=== PATIENT | female | born 2005 | race Caucasian/White ===

== ENCOUNTER 2024-08-23 21:50 | Emergency (ER) | payer OTHER ==
[~2024-08-23] VITALS: Ht 154.9 cm; Wt 41.4 kg
[2024-08-23 22:25] VITALS: BP 124/86; PULSE 73; RESP 16; TEMP 97.7; O2SAT 98
[2024-08-23] MEDS ORDERED: ACET500T58 PO (22:34)
--- NOTE | 2024-08-23 22:36 | ED.PDOC ---
Musculoskeletal HPI Comments 19-year-old female presents to ER with complaints of left 5th toe pain x1 day. Patient reports she has been experiencing pain/swelling/bruising to left 5th toe s/p accidentally dropping a "metal cup" on her left foot at 9:30 p.m. prior to arrival to ER. She rates her current pain a 4/10 to left 5th toe without radiation. Notes that she did take Tylenol for her pain with some relief. Denies numbness/tingling or any further symptoms/complaints Chief Complaint: Lower Extremity Time Seen by MD: 21:57 Primary Care Provider: NANI Reviewed Notes: Nurses Notes, Medications, Allergies Allergies: Coded Allergies: NO KNOWN ALLERGIES (Unverified , 08/23/24) Home Meds Active Scripts Acetaminophen (Acetaminophen) 500 Mg Tab, 500 MG PO Q4HPRN, #30 TAB 0 Refills Prov:KALEY RICHARDSON 08/23/24 Information Source: Patient Mode of Arrival: Wheelchair Past Medical History PAST MEDICAL HISTORY: Denies Surgical History: Denies all surgeries Family History Family History: Unknown Social History Smoker: Non-Smoker Alcohol: Denies ETOH Use Drugs: Denies Drug Use Lives In: Home Constitutional: denies: chills, diaphoresis, fatigue, fever, malaise, sweats, weakness, others EENTM: denies: blurred vision, double vision, ear bleeding, ear discharge, ear drainage, ear pain, ear ringing, eye pain, eye redness, hearing loss, mouth pain, mouth swelling, nasal discharge, nose bleeding, nose congestion, nose pain, photophobia, tearing, throat pain, throat swelling, voice changes, others Respiratory: denies: cough, hemoptysis, orthopnea, SOB at rest, shortness of breath, SOB with excertion, stridor, wheezing, others Cardiovascular: denies: chest pain, dizzy spells, diaphoresis, Dyspnea on exertion, edema, irregular heart beat, left arm pain, lightheadedness, palpitations, PND, syncope, others Gastrointestinal: denies: abdomen distended, abdominal pain, blood streaked bowels, constipated, diarrhea, dysphagia, difficulty swallowing, hematemesis, melena, nausea, poor appetite, poor fluid intake, rectal bleeding, rectal pain, vomiting, others Genitourinary: denies: abnormal vagina bleeding, burning, dyspareunia, dysuria, flank pain, frequency, hematuria, incontinence, pain, , vagina discharge, urgency, others Neurological: denies: dizziness, fainting, headache, left sided numbness, left sided weakness, numbness, paresthesia, pre-existing deficit, right sided numbness, right sided weakness, seizure, speech problems, tingling, tremors, weakness, others Musculoskeletal: reports: others (As stated in HPI) Integumetry: reports: others (As stated in HPI) Allergic/Immunocompromised: denies: Difficulty Healing, Frequent Infections, Hives, Itching, others Hematologic/Lymphatic: denies: anemia, blood clots, easy bleeding, easy bruising, swollen glands, others Endocrine: denies: excessive hunger, excessive sweating, excessive thirst, excessive urination, flushing, intolerance to cold, intolerance to heat, unexplained weight gain, unexplained weight loss, others Psychiatric: denies: anxiety, bipolar disorder, depression, hopeless, panic disorder, schizophrenia, sleepless, suicidal, others Physical Exam General Appearance: No Apparent Distress HEENT: PERRL/EOMI Neck: Full Range of Motion, Non-Tender, Normal Respiratory: Chest Non-Tender, Lungs Clear, No Accessory Muscle Use, No Respiratory Distress, Normal Breath Sounds Cardiovascular: No Murmur, No Gallop, Regular Rate/Rhythm Breast Exam: Deferred Gastrointestinal: NOT DONE Genitalia: Deferred Pelvic: Deferred Rectal: Deferred Extremities: Normal capillary refill, Normal range of motion Musculoskeletal : Extremity Location: Little Toe (TTP/mild swelling/ecchymosis noted to left 5th toe. No nailbed injury/further skin changes noted. Patient able to move all toes of left foot. Pulses intact. Gait slow due to pain localized to left 5th toe) Neurologic: Alert, No Motor Deficits, Normal Affect, Normal Mood, No Sensory Deficits Cerebellar Function: Normal Reflexes: Normal Skin: Dry, Warm Peripheral Pulses: 2+ dorsalis pedis (R), 2+ dorsalis pedis (L) Lymphatic: No Adenopathy Was a procedure done? Was a procedure done?: No Sedation Sedation?: No Differential Diagnosis EXT Differential Diagnosis: Dislocation, Laceration, Neurovascular injury X-Ray, Labs, Meds, VS Vital Signs Date Time Temp Pulse Resp B/P (MAP) Pulse Ox O2 Delivery O2 Flow Rate FiO2 08/23/24 22:25 97.7 73 16 124/86 (99) 98 97.7 08/23/24 22:25 Room Air* 0 21 08/23/24 21:59 97.7 73 16 124/86 (99) 98 97.7 PATIENT: GALE ROJO MACCT: [id number]: [id number] : 2005 LOC: ER ROOM / BED: / AGE / SEX: 19 / F ADM STATUS: REG ER SERVICE 26 ORDERING PHYSICIAN: KALEY RICHARDSON PROCEDURE(s): LTOE5 - L 5TH TOE XRAY REASON: left 5th toe pain ORDER NUMBER(s): [id number], ACCESSION NUMBER(s): [id number] CLINICAL INDICATION: left 5th toe pain TECHNIQUE: Left 5th toe 3 radiographic views of the foot were obtained. Comparison: None FINDINGS/IMPRESSION: Minimally displaced corner fracture distal phalanx left 5th toe at the distal interphalangeal joint. The visualized joint space is well maintained. The alignment is anatomical. There is no radiopaque foreign body. ATED BY: PERCY BAINS Jr., DO DICTATED DATE/TIME: 08/23/242302 SIGNED BY: PERCY BAINS Jr., SIGNED DATE/TIME: 08/23/242302 CC: Left 5th toe x-ray reviewed Gabriel tape and hard sole shoe applied Patient neurovascularly intact and reported improvement in symptoms prior to discharge Advised on rest/no strenuous activity, elevation and alternate ice on/off as needed for pain/swelling Advised to f/u with PCP and orthopedics/podiatry in 1-2 days Patient verbalized understanding and agreeable with current plan of care Advised to return to ER immediately if symptoms worsen Images Reviewed?: Images reviewed and evaluated by me Time of 1ST Reevaluation: 22:34 Reevaluation 1ST: N/A Patient Education/Counseling: Diagnosis, Treatment, Prognosis, Need For Follow Up Family Education/Counseling: No Family Present Departure 1 Departure Time of Disposition: 23:10 Impression: Primary Impression: Toe fracture, left Qualified Codes: S92.502A - Displaced unspecified fracture of left lesser toe(s), initial encounter for closed fracture Disposition: 01 HOME / SELF CARE / HOMELESS Condition: Stable e-Prescriptions Acetaminophen (Acetaminophen) 500 Mg Tab 500 MG PO Q4HPRN, #30 TAB 0 Refills Prov: KALEY RICHARDSON 08/23/24 Discharged With: Friend Critical Care Note Critical Care Time?: No Stability Stability form required: No Heart Score Heart Score: Heart Score Response (Comments) Value History N/A 0 EKG N/A 0 Age N/A 0 Risk Factors N/A 0 Troponin N/A 0 Total 0 KALEY RICHARDSON August 23, 2024 22:35
--- NOTE | 2024-08-23 23:06 | DVH ---
CLINICAL INDICATION: left 5th toe pain TECHNIQUE: Left 5th toe 3 radiographic views of the foot were obtained. Comparison: None FINDINGS/IMPRESSION: Minimally displaced corner fracture distal phalanx left 5th toe at the distal interphalangeal joint. The visualized joint space is well maintained. The alignment is anatomical. There is no radiopaque foreign body.
== END 2024-08-23 23:18 | disposition home or self-care (01) ==
LOC: ER 21:54
DX: S92.532A Displaced fracture of distal phalanx of left lesser toe(s), initial encounter for closed fracture (principal); W19.XXXA Unspecified fall, initial encounter; Y93.89 Activity, other specified; Y92.89 Other specified places as the place of occurrence of the external cause; Y99.8 Other external cause status
CPT/HCPCS: 73660

== ENCOUNTER 2025-02-14 23:32 | Emergency (ER) | payer OTHER ==
[~2025-02-14] VITALS: Ht 154.9 cm; Wt 42.8 kg
[~2025-02-14 23:32] MED LIST: ACET500T58 PO
[2025-02-14 23:34] VITALS: BP 118/81; TEMP 97.8
--- NOTE | 2025-02-15 00:29 | ED.PDOC ---
SOB-HPI HPI Comments 19-year-old female presents to ER with complaints of flu-like symptoms x1 day. Patient with past medical history significant for asthma reports that she has been experiencing dry cough, shortness of breath/wheezing, sore throat and body aches x 1 day. Patient present to ER ambulatory on arrival, with steady gait, in no distress and is noted to be tachycardic at 143, noting she had just given herself 2 albuterol nebulizer treatments prior to arrival to ER. Patients HR was noted to be improved on arrival to FT at 127. Denies chest pain, hemoptysis, palpitations, n/v, headache, dizziness or any further symptoms/complaints Chief Complaint: Flu like Time Seen by MD: 23:48 Primary Care Provider: NANI Reviewed notes: Nurses Notes, Medications, Allergies Information Source: Patient Mode of Arrival: Ambulatory Past Medical History PAST MEDICAL HISTORY: Asthma Surgical History: Appendectomy PROTECTION ENGINEER History: No Pertinent PROTECTION ENGINEER History Family History Family History: Unknown Social History Smoker: Non-Smoker Alcohol: Denies ETOH Use Drugs: Denies Drug Use Lives In: Home Constitutional: reports: others (As stated in HPI) EENTM: reports: others (As stated in HPI) Respiratory: reports: others (As stated in HPI) Cardiovascular: denies: chest pain, dizzy spells, diaphoresis, Dyspnea on exertion, edema, irregular heart beat, left arm pain, lightheadedness, palpitations, PND, syncope, others Gastrointestinal: denies: abdomen distended, abdominal pain, blood streaked bowels, constipated, diarrhea, dysphagia, difficulty swallowing, hematemesis, melena, nausea, poor appetite, poor fluid intake, rectal bleeding, rectal pain, vomiting, others Genitourinary: denies: abnormal vagina bleeding, burning, dyspareunia, dysuria, flank pain, frequency, hematuria, incontinence, pain, , vagina discharge, urgency, others Neurological: denies: dizziness, fainting, headache, left sided numbness, left sided weakness, numbness, paresthesia, pre-existing deficit, right sided numbness, right sided weakness, seizure, speech problems, tingling, tremors, weakness, others Musculoskeletal: denies: back pain, gout, joint pain, joint swelling, muscle pain, muscle stiffness, neck pain, others Integumetry: denies: bruises, change in color, change in hair/nails, dryness, laceration, lesions, lumps, rash, wounds, others Allergic/Immunocompromised: denies: Difficulty Healing, Frequent Infections, Hives, Itching, others Hematologic/Lymphatic: denies: anemia, blood clots, easy bleeding, easy bruising, swollen glands, others Endocrine: denies: excessive hunger, excessive sweating, excessive thirst, excessive urination, flushing, intolerance to cold, intolerance to heat, unexplained weight gain, unexplained weight loss, others Psychiatric: denies: anxiety, bipolar disorder, depression, hopeless, panic disorder, schizophrenia, sleepless, suicidal, others Physical Exam General Appearance: No Apparent Distress HEENT: Normal ENT Inspection, PERRL/EOMI, Pharynx Normal, TMs Normal Neck: Full Range of Motion, Non-Tender, Normal Respiratory: Chest Non-Tender, Lungs Clear, No Accessory Muscle Use, No Respiratory Distress, Wheezing (Mildly noted to bilateral upper/lower lung jarvis) Cardiovascular: No Murmur, No Gallop, Tachycardia Breast Exam: Deferred Gastrointestinal: NOT DONE Genitalia: Deferred Pelvic: Deferred Rectal: Deferred Extremities: Normal capillary refill, Normal range of motion Neurologic: Alert, geologist petroleum II-XII nml as Tested, No Motor Deficits, Normal Affect, Normal Mood, No Sensory Deficits Cerebellar Function: Normal Reflexes: Normal Skin: Dry, Normal Color, Warm Peripheral Pulses: 3+ Radial (R), 3+ Radial (L), 3+ Brachial (R), 3+ Brachial (L) Lymphatic: No Adenopathy Was a procedure done? Was a procedure done?: No Sedation Sedation?: No Differential Dx Differential Diagnosis: Pneumonia, Pulmonary Embolism, Respiratory Distress, Other (COVID-19, INFLUENZA) X-Ray, Labs, Meds, VS Vital Signs Date Time Temp Pulse Resp B/P (MAP) Pulse Ox O2 Delivery O2 Flow Rate FiO2 02/15/25 01:25 112 02/15/25 00:49 18 99 Room Air* 0 21 02/14/25 23:34 97.8 143 20 118/81 97 97.8 Lab Test 02/15/25 00:50 Range/Units Influenza Type A Antigen Negative Negative Influenza Type B Antigen Negative Negative SARS-CoV-2 Antigen (Rapid) Negative NEGATIVE Current Medications Medications (Trade) Dose Ordered Sig/David Route Start Time Stop Time Status Last Admin Sodium Chloride 1,000 ml @ 1,000 mls/hr Q1H ONCE IV 02/15/25 00:30 02/15/25 01:29 DC 02/15/25 00:30 Methylprednisolone Sodium Succinate (Solu Medrol) 125 mg ONCE ONCE IV 02/15/25 00:30 02/15/25 00:31 DC 02/15/25 01:11 Albuterol (Ventolin Medneb) 5 mg ONCE ONCE NEB 02/15/25 00:30 02/15/25 00:31 DC 02/15/25 00:[address] [place] (Atrovent Medneb) 0.5 mg ONCE ONCE NEB 02/15/25 00:30 02/15/25 00:31 DC 02/15/25 00:49 PATIENT: GALE ROJO ACCT: [id number] UNIT: [id number] : 2005 LOC: ER ROOM / BED: / AGE / SEX: 19 / F ADM STATUS: REG ER SERVICE ORDERING PHYSICIAN: KALEY RICHARDSON PROCEDURE(s): CXR2 - CHEST TWO VIEWS ROUTINE REASON: cough ORDER NUMBER(s): [id number], ACCESSION NUMBER(s): [id number] MEDICAL RECORDS NUMBER: [id number] PROCEDURE: XY CHEST TWO VIEWS ROUTINE DATE: 02/15/2025 01:20 AM HISTORY: cough Views: 2 COMPARISON: None FINDINGS/IMPRESSION: Lungs: The lungs are clear. Mediastinum: Mediastinal structures appear unremarkable... Skeletal: The skeletal structures appear unremarkable. ATED BY: CONSTANTINO VALDEZ MD DICTATED DATE/TIME: 02/15/25150 SIGNED BY: CONSTANTINO VALDEZ MD SIGNED DATE/TIME: 02/15/25150 CC: waiver signed Swab results reviewed - negative Chest x-ray reviewed Hep-Lock IV ordered NS 1 L IV ordered Solu-Medrol 125 mg IV ordered Duo nebulizer treatment ordered Patient had improvement in symptoms, denied any shortness of breath/wheezing and in no distress prior to discharge Advised to drink plenty of fluids Advised to follow up with PCP in 1-2 days Patient verbalized understanding and agreeable with current plan of care Advised to return to ER immediately if symptoms worsen Images Reviewed?: Images reviewed and evaluated by me Time of 1ST Reevaluation: 00:27 Reevaluation 1ST: N/A Time of 2ND Reevaluation: 02:01 Reevaluation 2ND: Improved Patient Education/Counseling: Diagnosis, Treatment, Prognosis, Need For Follow Up Family Education/Counseling: No Family Present SEPSIS Sepsis Screen Date sepsis recognized/suspect: Feb 14, 2025 Time Sepsis recognized/suspect: 2336 Recent Procedure: No On Antibiotic Therapy: No Respiratory Rate >20: No Heart Rate >90: No Temp<36 C (96.8 F) or >38.3 C: No SBP <90 or MAP <65 mmHG: No New Acute Mental Status Change: No Is the patient on CPAP, BIPAP,: No Physician Orders Heplock Iv (02/15/25 ) Chest Two Views Routine (02/15/25 00:17) Vital Signs Date Time Temp Pulse Resp B/P (MAP) Pulse Ox O2 Delivery O2 Flow Rate FiO2 02/15/25 01:25 112 02/15/25 00:49 18 99 Room Air* 0 21 02/14/25 23:34 97.8 143 20 118/81 97 97.8 Medications Medications Dose Ordered Sig/David Route Start Time Stop Time Status Last Admin Dose Admin Albuterol 5 mg ONCE ONCE NEB 02/15/25 00:30 02/15/25 00:31 DC 02/15/25 00:[address] [place] 0.5 mg ONCE ONCE NEB 02/15/25 00:30 02/15/25 00:31 DC 02/15/25 00:49 Methylprednisolone Sodium Succinate 125 mg ONCE ONCE IV 02/15/25 00:30 02/15/25 00:31 DC 02/15/25 01:11 Sodium Chloride 1,000 ml @ 1,000 mls/hr Q1H ONCE IV 02/15/25 00:30 02/15/25 01:29 DC 02/15/25 00:30 Departure 1 Departure Time of Disposition: 02:02 Impression: Primary Impression: Upper respiratory infection Qualified Codes: J06.9 - Acute upper respiratory infection, unspecified Additional Impression: Acute asthma exacerbation Qualified Codes: J45.901 - Unspecified asthma with (acute) exacerbation Disposition: 01 HOME / SELF CARE / HOMELESS Condition: Stable e-Prescriptions Prednisone (Prednisone) 20 Mg Tab 20 MG PO BID for 5 Days, #10 TAB 0 Refills Prov: KALEY RICHARDSON 02/15/25 Albuterol Sulfate (VENTOLIN MDI) 90 Mcg Ih 2 PUFF IN Q6HPRN, #1 INH 0 Refills Prov: KALEY RICHRADSON 02/15/25 Acetaminophen (Acetaminophen) 500 Mg Tab 500 MG PO Q4HPRN, #30 TAB 0 Refills Prov: KALEY RICHARDSON 02/15/25 Azithromycin (Azithromycin) 250 Mg Tab 250 MG PO DAILY MDD 500 for 5 Days, #6 TAB 0 Refills 2 TABLETS ORALLY ON DAY ONE, THEN 1 TABLET ORALLY DAILY FOR 4 DAYS Prov: KALEY RICHARDSON 02/15/25 Discharged With: Self Critical Care Note Critical Care Time?: No Stability Stability form required: No Heart Score Heart Score: Heart Score Response (Comments) Value History N/A 0 EKG N/A 0 Age N/A 0 Risk Factors N/A 0 Troponin N/A 0 Total 0 KALEY RICHARDSON Feb 15, 2025 00:29
[2025-02-15] MEDS: SODIUM CHLORIDE 0.9% 1,000 ML IV ONE (00:30)
[2025-02-15] MEDS: ALBUTEROL SULF 2.5 MG/0.5ML(0.5%) NEB SOLN NEB ONE (00:49)
[2025-02-15] MEDS: IPRATROPIUM BROM 0.5 MG/2.5ML INH SOL NEB ONE (00:49)
[2025-02-15] MEDS: methylPREDNISolone SOD SUCC 125 MG/2 ML VL IV ONE (01:11)
[2025-02-15 01:24] LABS: COVID19 ANTIGEN SOFIA FIA NEGATIVE (NEGATIVE)
[2025-02-15] MEDS ORDERED: PRED20TA2 PO (01:27)
[2025-02-15] MEDS ORDERED: ALBUAER3 IN (01:27)
[2025-02-15] MEDS ORDERED: AZIT-43 PO (01:27)
--- NOTE | 2025-02-15 01:53 | DVH ---
MEDICAL RECORDS NUMBER: [id number] PROCEDURE: XY CHEST TWO VIEWS ROUTINE DATE: 02/15/2025 01:20 AM HISTORY: cough Views: 2 COMPARISON: None FINDINGS/IMPRESSION: Lungs: The lungs are clear. Mediastinum: Mediastinal structures appear unremarkable... Skeletal: The skeletal structures appear unremarkable.
[2025-02-15 02:04] VITALS: PULSE 112; RESP 20; O2SAT 97
== END 2025-02-15 02:17 | disposition home or self-care (01) ==
LOC: ER 23:32
DX: J06.9 Acute upper respiratory infection, unspecified (principal); J45.901 Unspecified asthma with (acute) exacerbation; Z90.49 Acquired absence of other specified parts of digestive tract; Z20.822 Contact with and (suspected) exposure to COVID-19
CPT/HCPCS: 36415; 71046; 87426; 87804; 94640; 96361; 96374; 99284; J2919; J7030